=== PATIENT | female | born 1940 | race Two or more races ===

== ENCOUNTER 2023-01-03 06:21 | Day surgery (SDC) | payer OTHER ==
[~2023-01-03] VITALS: Ht 152.4 cm; Wt 92.5 kg
[~2023-01-03 06:21] MED LIST: ADULT ASPIRIN81 MG PO; B-COMPLEX1 EACH PO; COZAAR50 MG PO; FAMO PO; HORIZANT300 MG PO; SIMVAST PO; TENORMIN50 M1 PO; VITAMIN D310 MCG/1 M PO
== END 2023-01-03 21:25 | disposition home or self-care (01) ==
LOC: CIR.AMB 06:21
PROVIDERS: ATTEND Surgery
DX: C50.611 Malignant neoplasm of axillary tail of right female breast (principal); C77.3 Secondary and unspecified malignant neoplasm of axilla and upper limb lymph nodes; I10 Essential (primary) hypertension; D68.9 Coagulation defect, unspecified; Z20.822 Contact with and (suspected) exposure to COVID-19